=== PATIENT | male | born 1985 | race African-American/Black ===

== ENCOUNTER 2019-05-09 09:49 | Outpatient (CLI) | payer OTHER ==
--- NOTE | 2019-05-09 11:42 | SLEEP CARE CONSULTATION ---
Information from patient questionnaire entered by Meme Fitzpatrick. I have reviewed and concur with the information entered by Meme Fitzpatrick. This document represents the service I personally performed and the decisions made by me, Charlene Harkins MD, [facility]. History of Present Illness Reason for Visit: New patient Chief Complaint: reports: Unrefreshed sleep, Snoring, Excessive daytime sleepiness, Fatigue Duration of Symptoms: 5 years Usual bedtime: 5119-5114 Time it takes to fall asleep: 30 minutes Snores at night: Yes Number of times waking at night: 2-3 Reasons for waking at night: reports: Snoring, Bathroom Toss, Turn, or Twitch while sleeping: Yes Usually gets out of bed at: [id number] Feels refreshed in the morning: No Morning headache: No Sleepy or fatigued during the day: Yes Ever fallen asleep while driving: No Takes day naps: Yes Dreams during day naps: No Additional HPI information: I had the pleasure of seeing Mr. Aleman today regarding the possibility of him having a sleep disorder. As you know, he is a 33 year old gentleman who complains of loud snore, unrefreshed sleep, persistent fatigue, and excessive daytime sleepiness for the past 5 years. The patient tells me that he normally goes to bed around 11 pm - midnight, and it takes him approximately 30 minutes to fall asleep. He has not been told that he snores loudly and irregularly at night. He has never been observed to stop breathing in his sleep. However, he sleeps alone. He can recall waking up on the average of 2 - 3 times during the night. Most of the time he wakes up because of no reasons. He has awakened occasionally because of his own snoring, but not choking, or having to gasp for air. There is not a lot of tossing and turning in his sleep. No somniloquy (sleep talking) or somnambulism (sleep walking). He reports having bruxism. Generally there is no recollection of dreams. In the morning he usually gets up out of the bed around 4:30 - 5 a.m. (8 am on weekends) not feeling refreshed nor rested. He usually does not have a morning headache. During the day he complains of feeling sleepy and fatigued. His score on [place] Sleepiness Scale is 12 out of 24. He has never fallen asleep while driving nor has had any accident due to sleepiness. He usually takes naps during the day. Upon falling asleep during the day he denies having vivid dreams. He has had sleep paralysis, but never experienced cataplexy or symptoms of restless leg syndrome. He reports having impaired concentration during the day. Subjective Initial [place] Sleepiness Scale score: 12 Past Medical History Past Medical History: reports: Hypertension, GERD Social History The patient's occupation is active . Patient is Single and lives in [place]. Have you smoked in the past 12 months: Yes Cigarettes per day (20/pack): 10 Years of smokin Quit date: 05/2017 Smoking Pack Years: 2.5 Alcohol use: Yes Alcohol amount and frequency: 2 per week Caffeine use: Yes Caffeine amount and frequency: daily Allergies and Home Medications Drug allergies reviewed: Yes Home medication list reviewed: Yes Allergy and home medication list: Medications: Trimeque, montelukast, Nexium, and amlodipine Review of Systems Weight gain over past 5 years: 15 Cardiovascular: reports: high blood pressure Respiratory: reports: shortness of breath Gastrointestinal: reports: heartburn Urinary: denies: incontinence, frequency, urgency, impotence, other Neurological: reports: headaches, speech dysfunction Psychiatric: reports: depression Ear/Nose/Throat: reports: nasal congestion, sinus problems, dry mouth/throat, wisdom teeth removed Endocrine: reports: sluggishness Musculoskeletal: reports: joint pain, neck pain Immunologic: reports: sneezing, allergies to food or environment Physical Exam Vital signs obtained and entered by: Dr. Harkins Blood Pressure: 131/81 Heart Rate: 60 O2 Saturation: 98 Height: 5 ft 10.5 in Weight: 195 lb Body Mass Index: 27.6 BMI Classification: Overweight Neck circumference: 15.5 Mood/affect: normal HEENT: No craniofacial malformation Nostrils: patent to airflow Turbinates: normal Septum: midline Mouth and throat: narrow oropharynx Soft palate: long Hard palate: normal Uvula: normal Uvula visualization: 25% Mallampati Class III Tongue: normal in size Tonsils: small Chin and jaw: normal size and position Neck: normal w/o lymphadenopathy or thyromegaly Heart: regular rate and rhythm Lungs: clear bilaterally Abdomen: soft, non-tender Extremities: no edema or clubbing Neurologic: intact, no focal deficits Impression and Plan IMPRESSION: 1. Obstructive Sleep Apnea-Hypopnea Syndrome, as suggested by history of loud and irregular snoring, frequent awakenings during the night, unrefreshed sleep, cognitive impairment, and daytime hypersomnolence. Narrow oropharynx and obesity are common predisposing factors for obstructive sleep apnea-hypopnea syndrome. Pathophysiology of sleep-disordered breathing was discussed. I recommend proceeding to polysomnography to confirm the diagnosis and to assess severity. If he has significant sleep disordered breathing, a manual CPAP titration study will also be performed to find the optimal treatment pressure. I informed the patient of what the sleep studies involve and after some discussion, he agreed to proceed. Plan: 1. Schedule polysomnography + manual CPAP titration study and return in 1 to 2 weeks after the study to discuss result and initiate therapy. 2. Avoid long distance driving or when feeling sleepy. 3. Avoid alcohol, sedative and muscle relaxant around bedtime. 4. Attempt to lose some weight. I spent 100% of this 20 minute visit face to face with the patient with greater than 50% of this was spent time counseling the patient and coordination of care.
[2019-05-09 11:43] VITALS: BP 131/81
== END 2019-05-09 09:50 | disposition home or self-care (01) ==
LOC: SC 09:49
PROVIDERS: ATTEND Internal Medicine Pulmonary Disease
DX: R06.83 Snoring (principal); G47.8 Other sleep disorders; R41.89 Other symptoms and signs involving cognitive functions and awareness; G47.10 Hypersomnia, unspecified
CPT/HCPCS: 99203; 99212

== ENCOUNTER 2019-06-13 19:20 | Outpatient (CLI) | payer OTHER | END 2019-06-13 19:21 | disposition home or self-care (01) | LOC: SC 19:20 | PROVIDERS: ATTEND Internal Medicine Pulmonary Disease | DX: G47.33 Obstructive sleep apnea (adult) (pediatric) (principal) | CPT/HCPCS: 95810 ==

== ENCOUNTER 2019-06-22 08:22 | Outpatient (CLI) | payer OTHER ==
[2019-06-22 09:14] VITALS: BP 118/70
--- NOTE | 2019-06-22 09:14 | SLEEP CARE CONSULTATION ---
Information from patient questionnaire entered by Angeli Hillman. I have reviewed and concur with the information entered by Angeli Hillman. This document represents the service I personally performed and the decisions made by me, Nusrat Holliday RN, MSN, [employer]. History of Present Illness Initial [place] Sleepiness Scale score: 12 Current [place] Sleepiness Scale score: 10 Additional HPI information: DENNYS ZABALA returns for follow up of the recently performed polysomnography and informed of findings. I explained the pathophysiology behind obstructive sleep apnea. We then spent quite a bit of time discussing different treatment options. For mild obs tructive sleep apnea, surgery and oral appliance are alternatives to nasal CPAP therapy but in moderate or severe cases, nasal CPAP is the most effective and reliable treatment. Because apnea is primarily in supine position, then positional management therapy could be effective. Methods discussed such as positioning with pillows, using a T-shirt with tennis balls in the back, and shown commercial products that have a pillow format on back to prevent supine sleep. I reviewed the impact of weight changes on sleep apnea and strongly recommended losing weight. After some discussion, the patient opted to go with the nasal CPAP therapy. I explained how CPAP can be initiated with a manual titration study or with auto CPAP. Patient chose autoCPAP. Nasal autoCPAP set at [id number] will be ordered with rationale explained. A manual titration study will be ordered if unable to find optimal pressure with office adjustments. I explained how CPAP machine works with sample devices Respironics Dreamstation and ResMed [id number] and what to expect when using the machine. Using CPAP every night in order to get used to it was emphasized. Patient advised to put CPAP mask on before getting into bed so as not to fall asleep without CPAP. To assist acclimation to CPAP use, it could also be used for a short time during day while reading or watching TV. The patient was instructed to call the CPAP supplier to discuss any mechanical problem that may occur. If the mask given is uncomfortable or is difficult to keep on through the night even with adjustment, contact the CPAP supplier as many will replace with another mask style if notified before 30 days. If snoring or perceives is not getting enough air or too much air from the machine, notify this office. AAS patient education PAP tips reviewed and given to patient. Respironics preferred. Patient counseled not drink alcohol less than 4 hours before bedtime as it can increase snoring and apnea. Patient does not drink alcohol. Patient was cautioned about risks of drowsy driving until sleepiness symptoms resolve. Patient denies drowsy driving. AAS patient education on snoring and sleep apnea given and reviewed. Sleep Study - Polysomnography Polysomnography findings: The quality of the study is good. The patient had normal sleep efficiency. The sleep architecture was abnormal for sleep fragmentation and reduced amount of time spent in slow wave sleep (N3). Respiratory monitoring showed mild obstructive sleep apnea-hypopnea (AHI = 12.3) associated with frequent arousals, oxyhemoglobin desaturation and moderate hypoxia (marty oxygen saturation of 71%). Baseline oxygen saturation was normal. The respiratory events occurred almost exclusively during supine sleep (supine AHI = 16.5; non-supine = 2.04). Snore was loud in intensity. There was no significant periodic leg movement of sleep. Cardiac rhythm was normal sinus rhythm without significant arrhythmia. No abnormal behavior (parasomnia) observed during the night. Allergies and Home Medications Known drug allergies: No Home medication list reviewed: Yes Allergy and home medication list: amiolodipine 5mg daily triumeq 600mg/ 50mg/300mg daily Nexium 20mg daily montelukast daily Review of Systems Review of systems same as previous: Yes Physical Exam Blood Pressure: 118/70 Cuff size: long Heart Rate: 68 O2 Saturation: 98 Height: 5 ft 10.5 in Weight: 210 lb 6.4 oz (with fatigues and boots ) Body Mass Index: 29.7 BMI Classification: Overweight Impression and Plan 1. Obstructive Sleep Apnea-Hypopnea Syndrome, mild, with lowest oxygen saturation of 71%. Probably this is the cause of the patients symptoms of unrefreshed sleep, and excessive daytime sleepiness. Positive pressure therapy could benefit his hypertension and depression. As mentioned above, the patient will be started on nasal autoCPAP therapy with pressure set at 4-15 cmH2O. Compliance guidelines also reviewed. A copy of compliance guidelines will be given for reference at check out. Because the apnea is more severe supine, I instructed to avoid sleeping supine using pillow positioning until able to start CPAP use. * Nasal auto CPAP therapy, pressure at 4-15cm H2O. * Respironics device preferred by patient. * Attempt to lose weight. * Avoid alcohol consumption near bedtime. * Avoid supine sleep until using CPAP. * The patient is again cautioned about driving until sleepiness completely resolves. * Return one month after CPAP obtained. I will assess response to therapy and compliance at that time. I spent 100% of this 40 minute visit face to face with the patient with greater than 50% of this was spent time counseling the patient about sleep apnea, health risks if untreated, treatment options and benefit and coordination of care.
== END 2019-06-22 08:23 | disposition home or self-care (01) ==
LOC: SC 08:22
PROVIDERS: ATTEND Nurse Practitioner Family
DX: G47.33 Obstructive sleep apnea (adult) (pediatric) (principal)
CPT/HCPCS: 99212; 99215